=== PATIENT | male | born 1975 | race Caucasian/White ===

== ENCOUNTER 2023-01-24 09:56 | Outpatient (CLI) | payer OTHER, SELFPAY ==
--- NOTE | 2023-01-29 11:56 | WPDHOLTEREM ---
Holter/Event Monitor Holter/Event Monitor Date of procedure: 01/24/23 Holter/Event Procedure: 48 Hr Holter Monitor Indications: Palpitations Conclusion: 1. 48 hour holter monitor on 01/24/23. 2. Underlying rhythm is sinus rhythm. HR range 52-119 bpm; average HR 70 bpm. 3. There are 21 premature supraventricular complexes. No supraventricular tachycardia. 4. There are 156 premature ventricular complexes. No ventricular tachycardia. 5. No sinoatrial or atrioventricular blocks. No significant pauses greater than 2 seconds. 6. Patient reports symptom of palpitations which demonstrate sinus rhythm, HR range 59-119 bpm.
== END 2023-01-24 09:57 | disposition home or self-care (01) ==
LOC: ANHCARD 09:57
PROVIDERS: PCP Nurse Practitioner Family; Visit Provider Nurse Practitioner Family
DX: R00.2 Palpitations (principal)
CPT/HCPCS: 93225; 93226

== ENCOUNTER 2024-07-27 09:00 | Outpatient (RCR) | payer OTHER, SELFPAY ==
--- NOTE | 2024-06-22 09:00 | OPREHPOC ---
Outpatient Therapy Plan of Care This is a Multidisciplinary Plan of Care that may contain components documented by all disciplines (PT, OT, and ST.) PT Problem 1 PT Problem #1 Knowledge Deficit PT Goal 1 Goal / Goal Update *independent with HEP Target Visit 6 PT Problem 2 PT Problem #2 Pain PT Goal 1 Goal / Goal Update * pt report pain rating of 6/10 at worst Target Visit 6 PT Problem 3 PT Problem #3 Impaired Flexibility PT Goal 1 Goal / Goal Update *increase flexibility of L hip, to improve mobility and balance with R LE 1* hamstring length with supine SLR 60' 2* anterior hip/quad length with prone knee flexion 120' 3* hip extension 10' in prone PT Problem 4 PT Problem #4 Impaired Strength PT Goal 1 Goal / Goal Update *increase stability and strength of L hip: 1* hip abduction 4+/5 2* hip extension 4+/5
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
--- NOTE | 2024-07-27 09:51 | OPREHPOC ---
Outpatient Therapy Plan of Care This is a Multidisciplinary Plan of Care that may contain components documented by all disciplines (PT, OT, and ST.) PT Problem 1 PT Problem #1 Knowledge Deficit PT Goal 1 Goal / Goal Update *independent with HEP 07-27-24 d/c goal met Target Visit 6 Progress Met PT Problem 2 PT Problem #2 Pain PT Goal 1 Goal / Goal Update * pt report pain rating of 6/10 at worst 07-27-24 d/c goal met Target Visit 6 Progress Met PT Problem 3 PT Problem #3 Impaired Flexibility PT Goal 1 Goal / Goal Update *increase flexibility of L hip, to improve mobility and balance with R LE 1* hamstring length with supine SLR 60' 2* anterior hip/quad length with prone knee flexion 120' 3* hip extension 10' in prone 07-27-24 d/c goals met Target Visit 6 Progress Met PT Problem 4 PT Problem #4 Impaired Strength PT Goal 1 Goal / Goal Update *increase stability and strength of L hip: 1* hip abduction 4+/5 2* hip extension 4+/5 07-27-24 d/c goals met Target Visit 6 Progress Met
--- NOTE | 2024-07-27 09:51 | PTOPDC ---
Assessment and note entered by Kelsi Ricardo, PT Assessment Status Discharge Diagnosis L hip OA ICD-10 Condition Codes (PT) Pain in left hip M25.552 Onset about 1 year Subjective Information hip is better, have been doing the exercises; feel like ok to be finished with PT; Reported Pain Level Pain Score Self Report Additional Pain Score Comments pain range in the past week 0-5/10; dull pain lateral hip increase pain : yard work, cross leg to put L shoe on decrease pain: rest, meloxicam, ice Assessment PT Clinical Summary Aramis has received 5 PT sessions. He has improved in all areas, today presents with pain rating of 0-5/10; increase flexibility of L hamstring and anterior hip/quad muscles and increase strength of hip extension and abduction; independent with HEP and improved awareness of body mechanics and posture. The goals were achieved. Discharge PT services. He is to continue with HEP and monitor activity to manage his hip pain. Plan of Care PT Services Indicated No
== END 2024-07-27 14:01 | disposition home or self-care (01) ==
LOC: ANHPT 09:00
PROVIDERS: PCP Nurse Practitioner Family; Visit Provider Nurse Practitioner Family
DX: M25.552 Pain in left hip (principal); M16.12 Unilateral primary osteoarthritis, left hip
CPT/HCPCS: 97110; 97140; 97161; 97530

== ENCOUNTER 2025-01-28 07:58 | Outpatient (CLI) | payer OTHER, SELFPAY ==
--- NOTE | ~2025-01-28 | MR_ITS ---
EXAM/PROCEDURE: MR lumbar spine wo con HISTORY: Lumbar radicular pain COMPARISON: None available. TECHNIQUE: Multiplanar noncontrast enhanced lumbar spine MRI performed FINDINGS: Degenerative changes are present involving disc spaces and posterior elements throughout the lumbar spine. No gross acute or aggressive bony or soft tissue process seen. Partially visualized 4.5 cm right renal cyst. The conus tapers normally at L1. Visualized portion of the cord normal in signal. Level specific findings as follows: T12-L1: Mild degenerative change L1-2: Mild degenerative change L2-3: Moderate facet hyperostosis with thickening of ligamentum flavum and mild disc bulging contributes to mild to moderate bilateral neural foraminal narrowing. No spinal canal stenosis or discrete disc protrusion. L3-4: Degenerative disc and facet changes contribute to mild to moderate bilateral neural foraminal narrowing. No spinal canal stenosis or discrete disc protrusion. L4-5: More advanced thickening of ligamentum flavum with facet hyperostosis along with mild to moderate posterior disc bulging contributes to borderline stenosis in the lateral recesses, and moderately severe bilateral neural foraminal narrowing. No spinal canal stenosis or discrete disc protrusion. L5-S1: More severe posterior spondylosis and disc bulging along with facet hyperostosis resulting in moderate to severe bilateral neural foraminal narrowing, left worse than right. No spinal canal stenosis or discrete disc protrusion. Stenosis developing in the lateral recesses left worse than right. IMPRESSION: 1. Multilevel degenerative changes with level specific findings as detailed above. 2. No gross acute or aggressive bony or soft tissue process. Reviewed, dictated and finalized at location A. ITORY MANAGER IMPRESSION: 1. Multilevel degenerative changes with level specific findings as detailed abo ve. 2. No gross acute or aggressive bony or soft tissue process.
== END 2025-01-28 07:59 | disposition home or self-care (01) ==
PROVIDERS: PCP Nurse Practitioner Family; Visit Provider Nurse Practitioner Family
DX: M47.896 Other spondylosis, lumbar region (principal)
CPT/HCPCS: 72148

== ENCOUNTER 2025-02-18 11:20 | Outpatient (CLI) | payer OTHER, SELFPAY ==
--- NOTE | ~2025-02-18 | MR_ITS ---
EXAM/PROCEDURE: MR renal wo/w con HISTORY: N28.89 - Other specified disorders of kidney and ureter COMPARISON: Lumbar spine MRI from January 28, 2025 TECHNIQUE: Pre and postcontrast enhanced abdominal MRI with renal protocol performed. FINDINGS: In the upper pole of the right kidney, a 6.1 x 6.0 x 6.4 cm mildly complex cystic mass is present with internal septations along the posterior and inferior margin, and smooth margins. Based on these features, classification appears to represent Bosniak 2F. On postcontrast sequences, no compelling enhancing nodular focus present. The septal portions Mild diffuse fatty liver changes. The liver otherwise appears normal. Adrenal glands, left kidney, pancreas spleen stomach and aorta appear within normal limits. IMPRESSION: 1. 6.4 cm Bosniak 2F classification right renal cyst. 6 month follow-up imaging with either ultrasound CT or MRI recommended. 2. Other findings as above. Reviewed, dictated and finalized at location A. TRICAL POWER STATION TECHNICIAN
== END 2025-02-18 11:21 | disposition home or self-care (01) ==
LOC: MICIMG 11:20
PROVIDERS: PCP Nurse Practitioner Family; Visit Provider Nurse Practitioner Family
DX: N28.89 Other specified disorders of kidney and ureter (principal); N28.1 Cyst of kidney, acquired; K76.0 Fatty (change of) liver, not elsewhere classified
CPT/HCPCS: 74183; A9577